=== PATIENT | female | born 1965 | race Caucasian/White ===

== ENCOUNTER 2021-02-16 07:02 | Day surgery (SDC) | payer BC, OTHER ==
[~2021-02-16 07:02] MED LIST: Lactated Ringers 1,000 ML IV SCH; Sodium Chloride 0.9% 10 ML Syringe FLUSH PRN
[2021-02-16] MEDS ORDERED: Propofol 200 MG/20 ML SDV ONE (08:15)
[2021-02-16] MEDS ORDERED: fentaNYL 100 MCG/2 ML SDV ONE (08:16)
[2021-02-16 09:13] VITALS: BP 92/61; PULSE 48
--- NOTE | 2021-02-17 08:11 | OR ---
PREOPERATIVE DIAGNOSIS: History of colon polyps. This will be the patient's second colonoscopy. Last one done in 06/2015 revealed 2 small adenomas. There is no family history of colon cancer. POSTOPERATIVE DIAGNOSES: 1. 2 mm polyp at 50 cm, removed using cold forceps. 2. Mild hemorrhoids, not acutely inflamed. 3. Mildly tortuous but otherwise normal colon as well as normal-appearing distal ileum. PROCEDURE: Colonoscopy with polypectomy x1 using cold forceps. SURGEON: Basilio Thakkar M.D. ANESTHESIA: Monitored anesthesia care. BOWEL PREP: Good. DESCRIPTION OF PROCEDURE: Jessica is a 55-year-old female who was brought to the endoscopy suite after discussing risks and benefits of the procedure. Informed consent was obtained for conscious sedation and colonoscopy with or without biopsy and/or polypectomy. We also discussed possibility of missed lesions. Pre-procedure exam was unremarkable. IV, oxygen, and monitors were placed. The patient was placed in the left lateral decubitus position. Sedation was administered and a digital rectal exam was performed and unremarkable except for some mild hemorrhoids, not acutely inflamed. Colonoscope was passed into the rectum and slowly advanced all the way to the cecum. The patient did have mildly tortuous colon. Cecum was viewed and photographed. Ileocecal valve was intubated and distal ileum was normal in appearance. The colonoscope was slowly withdrawn and the mucosa was closed observed in a direct circumferential manner. The ascending colon was unremarkable. The transverse colon was unremarkable. The descending colon revealed 2 mm polyp at 50 cm, removed using cold forceps. Sigmoid colon unremarkable. Retroflexion was performed. Rectal mucosa revealed some mild hemorrhoids, not acutely inflamed. Scope was removed. The patient tolerated the procedure well. The patient was monitored until that baseline status. Discharge instructions were reviewed and the patient was discharged in good condition. COMPLICATIONS: None. TOTAL TIME: 20 minutes. ESTIMATED BLOOD LOSS: Less than 1 mL. RECOMMENDATIONS/FOLLOWUP: We will await results of path report to determine ideal followup interval. I would like to kindly thank Sharlene Todd for this referral. DMB: 02/16/2021 11:53:32 MODL: 02/16/2021 18:02:52 /[id number]
== END 2021-02-16 09:50 | disposition home or self-care (01) ==
LOC: VM.SDS 07:02
PROVIDERS: ATTEND Family Medicine
DX: Z12.11 Encounter for screening for malignant neoplasm of colon (principal); D12.4 Benign neoplasm of descending colon; K64.9 Unspecified hemorrhoids; J45.909 Unspecified asthma, uncomplicated; E03.9 Hypothyroidism, unspecified; G47.00 Insomnia, unspecified; G25.81 Restless legs syndrome; Z98.890 Other specified postprocedural states; Z79.899 Other long term (current) drug therapy; Z87.891 Personal history of nicotine dependence
CPT/HCPCS: 00812; J2704; J3010; J7120

== ENCOUNTER 2024-05-25 10:07 | Emergency (ER) | payer OTHER ==
[2024-05-25 10:27] LABS: HEMATOCRIT 36.4 % (33.0-47.0); HEMOGLOBIN 12.8 g/dL (12.0-16.0); MEAN CORPUSCULAR HEMOGLOBIN 33.2 pg (26.0-32.0); MEAN CORPUSCULAR HGB CONC 35.2 g/dL (32.0-36.0); MEAN CORPUSCULAR VOLUME 94.3 fL (78.0-93.0); RED BLOOD CELL COUNT 3.86 x10^6/uL (4.00-5.50); WHITE BLOOD CELL COUNT,WBC 4.3 x10^3/uL (4.0-10.0)
[2024-05-25 10:48] LABS: A/G RATIO 1.52; ALANINE AMINOTRANSFERASE,ALT 20 U/L (14-59); ALBUMIN 4.4 g/dL (3.4-5.0); ALKALINE PHOSPHATASE 50 U/L (46-116); ASPARTATE AMNIOTRANSFERASE,AST 22 U/L (15-37); BILIRUBIN TOTAL 0.6 mg/dL (0.2-1.0); BLOOD UREA NITROGEN,BUN 11 mg/dL (7-18); CALCIUM 9.3 mg/dL (8.5-10.1); CARBON DIOXIDE,CO2 27 mmol/L (21-32); CHLORIDE,CL 100 mmol/L (98-107); GLUCOSE RANDOM 101 mg/dL (70-99); POTASSIUM,K 3.7 mmol/L (3.5-5.1); PROTEIN TOTAL,TP 7.3 g/dL (6.4-8.2); SODIUM,NA 139 mmol/L (136-145)
[2024-05-25 10:51] LABS: ANION GAP 15.7 mmol/L (5-15); ESTIMATED GFR 65 mL/min (>=60)
[2024-05-25 11:10] VITALS: PULSE 59
[2024-05-25 11:13] VITALS: BP 98/60
== END 2024-05-25 11:40 | disposition home or self-care (01) ==
LOC: VM.ED 10:07
DX: F41.9 Anxiety disorder, unspecified (principal); F43.9 Reaction to severe stress, unspecified; J45.909 Unspecified asthma, uncomplicated; E78.00 Pure hypercholesterolemia, unspecified; E03.9 Hypothyroidism, unspecified; Z79.890 Hormone replacement therapy; Z79.899 Other long term (current) drug therapy; Z90.710 Acquired absence of both cervix and uterus
CPT/HCPCS: 71046; 80053; 84484; 85027; 93005; 93010; 99284; 99285

== ENCOUNTER 2024-07-23 13:22 | Day surgery (SDC) | payer OTHER ==
[2024-07-23] MEDS: Lactated Ringers 1,000 ML IV SCH (13:40)
[2024-07-23] MEDS ORDERED: Sodium Chloride 0.9% 10 ML Syringe FLUSH PRN (13:51)
[2024-07-23] MEDS ORDERED: Lidocaine 4% 5 ML Amp ONE (14:37)
[2024-07-23] MEDS ORDERED: Midazolam 1 MG/ML 2 ML SDV ONE (14:38)
[2024-07-23] MEDS ORDERED: Propofol 200 MG/20 ML SDV ONE (14:38)
[2024-07-23] MEDS ORDERED: fentaNYL 100 MCG/2 ML SDV ONE (14:38)
[2024-07-23 15:33] VITALS: PULSE 47
[2024-07-23 15:40] VITALS: BP 83/44
== END 2024-07-23 16:16 | disposition home or self-care (01) ==
LOC: VM.SDS 13:22
PROVIDERS: ATTEND Family Medicine
DX: R10.13 Epigastric pain (principal); R14.0 Abdominal distension (gaseous); K31.89 Other diseases of stomach and duodenum; J45.909 Unspecified asthma, uncomplicated; Z79.899 Other long term (current) drug therapy
CPT/HCPCS: 00731; J2250; J2704; J3010; J3490; J7120